=== PATIENT | male | born 1985 | race Caucasian/White ===

== ENCOUNTER 2019-10-22 11:53 | Emergency (ER) | payer OTHER ==
[~2019-10-22] VITALS: Ht 172.7 cm; Wt 94.1 kg
[~2019-10-22 11:53] MED LIST: CELE20TA PO; no home medications
[2019-10-22 11:54] VITALS: BP 138/94
[2019-10-22] MEDS ORDERED: AUGM875T28 PO (12:20)
[2019-10-22] MEDS ORDERED: BOOSTRIX/ADACEL VACCINE (DIPHTH/PERTUSS/ACELL/TETANUS) 0.5ML SYR IM ONE (12:30)
== END 2019-10-22 12:33 | disposition home or self-care (01) ==
LOC: M ED 11:53
DX: S81.851A Open bite, right lower leg, initial encounter (principal); S61.451A Open bite of right hand, initial encounter; W54.0XXA Bitten by dog, initial encounter; Y92.89 Other specified places as the place of occurrence of the external cause; Y99.0 Civilian activity done for income or pay

== ENCOUNTER 2022-07-31 16:53 | Emergency (ER) | payer OTHER ==
[~2022-07-31 16:53] MED LIST changes: +AUGM875T28 PO
[2022-07-31 18:20] VITALS: BP 155/96
[2022-07-31] MEDS ORDERED: NEOSPORIN OINT 0.9 GM PKT TOP ONE (18:45)
== END 2022-07-31 18:54 | disposition home or self-care (01) ==
LOC: M ED 16:53 → EDBD 16:53 → M ED 18:54
DX: S60.511A Abrasion of right hand, initial encounter (principal); R51.9 Headache, unspecified; M25.561 Pain in right knee; M25.562 Pain in left knee; V49.40XA Driver injured in collision with unspecified motor vehicles in traffic accident, initial encounter; Y92.410 Unspecified street and highway as the place of occurrence of the external cause; Z79.2 Long term (current) use of antibiotics